=== PATIENT | male | born 1995 | race African-American/Black ===

== ENCOUNTER 2019-06-16 16:43 | Emergency (ER) | payer SELFPAY ==
[~2019-06-16] VITALS: Ht 188 cm; Wt 79.0 kg
[2019-06-16] MEDS ORDERED: CEFTRIAXONE SODIUM 250 MG/VIAL IM ONE (18:15)
[2019-06-16] MEDS ORDERED: AZITHROMYCIN 500 MG TABLET PO ONE (18:15)
[2019-06-16] MEDS ORDERED: LIDOCAINE HCL 1% 20ML VIAL (Pyxis) INJ INFIL ONE (18:15)
[2019-06-16 18:31] LABS: CLARITY URINE CLEAR (CLEAR); COLOR URINE YELLOW (YELLOW); KETONES URINE NEGATIVE (NEGATIVE); LEUKOCYTE ESTERASE URINE NEGATIVE (NEGATIVE); NITRITE URINE NEGATIVE (NEGATIVE); OCCULT BLOOD URINE NEGATIVE (NEGATIVE); PH URINE 7.5 (4.5-8.0); PROTEIN URINE NEGATIVE (NEGATIVE); SPECIFIC GRAVITY URINE 1.005 (1.005-1.030)
[2019-06-16 19:05] VITALS: BP 129/72
== END 2019-06-16 19:07 | disposition home or self-care (01) ==
LOC: ER 16:43
DX: N34.2 Other urethritis (principal)
CPT/HCPCS: 81003; 96372; 99283; J0696; J3490